=== PATIENT | female | born 1980 | race Caucasian/White ===

== ENCOUNTER 2018-04-30 12:54 | Inpatient (IN) | payer MEDICAID, SELFPAY ==
[2018-04-30 13:22] VITALS: BP 110/61; PULSE 75; RESP 16; TEMP 36.7; O2SAT 97; BMI 25.8; BMI 25.9
--- NOTE | 2018-04-30 14:19 | PCM.HP.STD ---
Problem List (1) Acute alcohol withdrawal Status: Acute (2) Acute opioid withdrawal Status: Acute (3) Benzodiazepine abuse Status: Chronic (4) Heroin abuse Status: Chronic (5) Alcohol abuse Status: Chronic History of Present Illness Date of Admission: 04/30/18 Chief Complaint: Acute opioid withdrawal, acute alcohol withdrawal. The patient is a 37 year old F with past medical history as mentioned above presented to the [facility] office requesting admission for acute opioid withdrawal and acute alcohol withdrawal. Patient has been using IV heroin continuously over the last 8 months, remained without use for several months before that and she has been using IV heroin for total of 12 years. She has been smoking cocaine as well. Also, she has been drinking alcohol daily, she drinks about 6 packs daily and last drink was 2 days ago. She mentioned that she also uses Xanax 5-10 mg a day for 3-5 days a week and his last use was 3 days ago. Her presenting symptoms are body shakes and tremors, associated with restlessness, started since yesterday morning, has been getting worse with time, associated with cold sweats and muscle aches and without aggravating or relieving factors. Also, she reported abdominal pain, described as abdominal cramps, mild, associated with nausea without vomiting and also associated with diarrhea. Since yesterday, she had about 4-5 times of loose stool without blood. She denies fever chills. At this time, her vital signs are stable. She was a direct admit and there is no blood work done at this time. 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 Paternal History Items: No pertinent history Review of Systems Constitutional: Reports: Anorexia, Malaise, Weakness. Denies: Chills, Fever Eyes: Denies: Blurred vision, Double vision, Drainage, Redness HEENT: Reports: Sore Throat, - - Runny nose.. Denies: Difficulty Hearing, Ear Pain, Eye Pain, Nasal bleeding, Nasal Congestion Cardiovascular: Denies: Chest Pain, Chest Pressure, Chest Tightness, Edema, Heaviness, Palpitations, Syncope Respiratory: Denies: Cough, Pleuritic Pain, Shortness of Breath, Sputum production, Wheezing Gastrointestinal: Reports: Abdominal Pain, Diarrhea, Nausea. Denies: Constipation, Hematochezia, Vomiting Genitourinary: Denies: Dysuria, Frequency, Hematuria Musculoskeletal: Reports: Muscle pain. Denies: Arm Pain, Back Pain, Foot Pain Skin: Denies: Dryness, Rash Neurological: Denies: Balance problems, Double vision, Change in Speech, Slurred speech, Confusion, Headaches, Incoordination, Numbness Psychiatric: Denies: Anxiety, Depression Endocrine: Denies: Change in Body Habitus, Polydipsia VTE Information - Inpt Only VTE Present on Admission: No VTE Mechan Device Prophylaxis: None VTE Pharm Prophylaxis ordered?: No Patient Problems: Active and Suspected Problems Acute alcohol withdrawal (Acute) Acute opioid withdrawal (Acute) - Physical Exam General: Alert, Oriented x3, Cooperative, No apparent distress HEENT: Atraumatic, PERRLA, EOMI, Normocephalic Oral: Moist Mucosa, No Gingival or Mucosal Lesions/ Ulcerations Neck: Supple, No JVD, Negative Carotid Bruits, Trachea Midline, Thyroid Normal Size and Texture Lungs: Clear to auscultation, Normal air movement, No rhonchi, No wheeze, No rales Cardiovascular: Regular rate, Regular Rhythm, Normal S1, Normal S2, PMI Normal Abdomen: Bowel Sounds Present, Soft, Non Tender, Non-Distended, No Hepato-splenomegaly Extremities: No clubbing, No cyanosis, No edema Skin: No rashes, No breakdown Lymphatic: No Cervical, Supraclavicular, or Inguinal Adenopathy Neurological: Cranial nerves II-XII grossly intact, Motor Exam 5/5 strength throughout Psych/Mental Status: Normal Affect, Anxious, Alert and oriented to time, place, person, mood and affect Vital Signs Temp Pulse Resp BP Pulse Ox 98.1 F 75 16 110/61 97 04/30/18 13:22 04/30/18 13:22 04/30/18 13:22 04/30/18 13:22 04/30/18 13:22 Oxygen Delivery Method Room Air Weight: 150 lb 11.2 oz Body Mass Index (BMI) 25.8 Assessment/Plan All Active Problems Acute alcohol withdrawal (Acute) Acute opioid withdrawal (Acute) This is a 37 years old female patient presented to the [facility] office requesting admission for medical stabilization secondary to acute opioid withdrawal and acute alcohol withdrawal. #1 acute opioid withdrawal: Patient has been using IV heroin, smokes crack cocaine, last use was yesterday. She has been using drugs for almost 12 years, was clean for 8 months but she started using IV heroin again for the last 8 months continuously. Plan: Admit to [facility] floor, regular diet, CBC, CMP, urine drug screen, blood alcohol level, serum test, lipase, initiate [facility] protocol with tapering course of Subutex, as needed Bentyl, Catapres, Vistaril, methocarbamol, Imodium, Zofran and Mirapex. #2 acute alcohol withdrawal: Patient has been drinking alcohol daily, 6 packs daily, last drink was 2 days ago. She has been drinking since age of 18. Plan: CIWA, tapering course of Librium, folic acid and thiamine supplement, multivitamins. #3 benzodiazepine abuse: Patient admitted using Xanax, between 5-10 mg a day for 3-5 days a week. Plan for close monitoring, will use tapering course of Librium as above. #3 alcohol abuse: Patient has been drinking since age of 18, daily drinker, drinks about 6 packs daily. Plan as above. #4 tobacco abuse: Offered nicotine patch. #5 DVT prophylaxis: Low-risk patient, no prophylaxis indicated. This note was generated with [employer] dictation software. It may contain incorrect words, spelling, and punctuation that were not noted in checking the note before signing. Code Visit Inpatient E&M: 96968 Init Hosp L3
--- NOTE | 2018-04-30 14:24 | HP.PCM_ITS ---
Problem List (1) Acute alcohol withdrawal Status: Acute (2) Acute opioid withdrawal Status: Acute (3) Benzodiazepine abuse Status: Chronic (4) Heroin abuse Status: Chronic (5) Alcohol abuse Status: Chronic History of Present Illness Date of Admission: 04/30/18 Chief Complaint: Acute opioid withdrawal, acute alcohol withdrawal. The patient is a 37 year old F with past medical history as mentioned above presented to the [facility] office requesting admission for acute opioid withdrawal and acute alcohol withdrawal. Patient has been using IV heroin continuously over the last 8 months, remained without use for several months before that and she has been using IV heroin for total of 12 years. She has been smoking cocaine as well. Also, she has been drinking alcohol daily, she drinks about 6 packs daily and last drink was 2 days ago. She mentioned that she also uses Xanax 5-10 mg a day for 3-5 days a week and his last use was 3 days ago. Her presenting symptoms are body shakes and tremors, associated with restlessness, started since yesterday morning, has been getting worse with time, associated with cold sweats and muscle aches and without aggravating or relieving factors. Also, she reported abdominal pain, described as abdominal cramps, mild, associated with nausea without vomiting and also associated with diarrhea. Since yesterday, she had about 4-5 times of loose stool without blood. She denies fever chills. At this time, her vital signs are stable. She was a direct admit and there is no blood work done at this time. 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 Paternal History Items: No pertinent history Review of Systems Constitutional: Reports: Anorexia, Malaise, Weakness. Denies: Chills, Fever Eyes: Denies: Blurred vision, Double vision, Drainage, Redness HEENT: Reports: Sore Throat, - - Runny nose.. Denies: Difficulty Hearing, Ear Pain, Eye Pain, Nasal bleeding, Nasal Congestion Cardiovascular: Denies: Chest Pain, Chest Pressure, Chest Tightness, Edema, Heaviness, Palpitations, Syncope Respiratory: Denies: Cough, Pleuritic Pain, Shortness of Breath, Sputum production, Wheezing Gastrointestinal: Reports: Abdominal Pain, Diarrhea, Nausea. Denies: Constipation, Hematochezia, Vomiting Genitourinary: Denies: Dysuria, Frequency, Hematuria Musculoskeletal: Reports: Muscle pain. Denies: Arm Pain, Back Pain, Foot Pain Skin: Denies: Dryness, Rash Neurological: Denies: Balance problems, Double vision, Change in Speech, Slurred speech, Confusion, Headaches, Incoordination, Numbness Psychiatric: Denies: Anxiety, Depression Endocrine: Denies: Change in Body Habitus, Polydipsia VTE Information - Inpt Only VTE Present on Admission: No VTE Mechan Device Prophylaxis: None VTE Pharm Prophylaxis ordered?: No Patient Problems: Active and Suspected Problems Acute alcohol withdrawal (Acute) Acute opioid withdrawal (Acute) - Physical Exam General: Alert, Oriented x3, Cooperative, No apparent distress HEENT: Atraumatic, PERRLA, EOMI, Normocephalic Oral: Moist Mucosa, No Gingival or Mucosal Lesions/ Ulcerations Neck: Supple, No JVD, Negative Carotid Bruits, Trachea Midline, Thyroid Normal Size and Texture Lungs: Clear to auscultation, Normal air movement, No rhonchi, No wheeze, No rales Cardiovascular: Regular rate, Regular Rhythm, Normal S1, Normal S2, PMI Normal Abdomen: Bowel Sounds Present, Soft, Non Tender, Non-Distended, No Hepato- splenomegaly Extremities: No clubbing, No cyanosis, No edema Skin: No rashes, No breakdown Lymphatic: No Cervical, Supraclavicular, or Inguinal Adenopathy Neurological: Cranial nerves II-XII grossly intact, Motor Exam 5/5 strength throughout Psych/Mental Status: Normal Affect, Anxious, Alert and oriented to time, place, person, mood and affect Vital Signs Temp Pulse Resp BP Pulse Ox 98.1 F 75 16 110/61 97 04/30/18 13:22 04/30/18 13:22 04/30/18 13:22 04/30/18 13:22 04/30/18 13:22 Oxygen Delivery Method Room Air Weight: 150 lb 11.2 oz Body Mass Index (BMI) 25.8 Assessment/Plan All Active Problems Acute alcohol withdrawal (Acute) Acute opioid withdrawal (Acute) This is a 37 years old female patient presented to the [facility] office requesting admission for medical stabilization secondary to acute opioid withdrawal and acute alcohol withdrawal. #1 acute opioid withdrawal: Patient has been using IV heroin, smokes crack cocaine, last use was yesterday. She has been using drugs for almost 12 years, was clean for 8 months but she started using IV heroin again for the last 8 months continuously. Plan: Admit to [facility] floor, regular diet, CBC, CMP, urine drug screen, blood alcohol level, serum test, lipase, initiate [facility] protocol with tapering course of Subutex, as needed Bentyl, Catapres, Vistaril, methocarbamol, Imodium, Zofran and Mirapex. #2 acute alcohol withdrawal: Patient has been drinking alcohol daily, 6 packs daily, last drink was 2 days ago. She has been drinking since age of 18. Plan: CIWA, tapering course of Librium, folic acid and thiamine supplement, multivitamins. #3 benzodiazepine abuse: Patient admitted using Xanax, between 5-10 mg a day for 3-5 days a week. Plan for close monitoring, will use tapering course of Librium as above. #3 alcohol abuse: Patient has been drinking since age of 18, daily drinker, drinks about 6 packs daily. Plan as above. #4 tobacco abuse: Offered nicotine patch. #5 DVT prophylaxis: Low-risk patient, no prophylaxis indicated. This note was generated with [employer] dictation software. It may contain incorrect words, spelling, and punctuation that were not noted in checking the note before signing. Code Visit Inpatient E&M: 52425 Init Hosp L3
[2018-04-30] MEDS: chlordiazePOXIDE 25 MG Capsule PO ×2 (15:46→21:36)
[2018-04-30] MEDS: Pramipexole Di-HCl 0.25 MG Tablet PO (15:47)
[2018-04-30] MEDS: Methocarbamol 750 MG Tablet PO ×2 (15:47→21:47)
[2018-04-30] MEDS: Ondansetron ODT 4 MG Tablet PO ×2 (15:47→21:47)
[2018-04-30] MEDS: cloNIDine HCl 0.1 MG Tablet PO (15:47)
[2018-04-30 15:51] LABS: Absolute Neutrophil Count 1.9 X10^3/uL (2.0-7.7); Basophil# 0.04 X10^3/uL; Basophil% 0.8 % (0-1); Eosinophil# 0.14 X10^3/uL; Eosinophils% 2.9 % (0-5); Hematocrit 43.1 % (37-47); Lymphocyte % 47.8 % (19-41); Mean Corp Hgb Conc 32.5 g/gl (32-36); Mean Corpuscular Hgb 28.3 pg (27.0-32.0); Mean Corpuscular Volume 87.1 fL (81-99); Mean Platelet Vol. 10.8 fl (6.2-12.0); Monocyte# 0.41 X10^3/uL; Monocyte% 8.5 % (0-10); Neutrophil # 1.91 X10^3/uL (2.7-7.7); Neutrophil % 39.8 % (47-70); Platelet Count 291 K/mm3 (150-450); RBC Distribution Width SD 44.1 fl (35.1-43.9); Red Blood Count 4.95 M/mm3 (4.2-5.4); White Blood Count 4.8 K/mm3 (4.4-11.0)
[2018-04-30 15:52] LABS: POSITIVE COUNT NO; POSITIVE DIFFERENTIAL NO; POSITIVE MORPHOLOGY NO
[2018-04-30 16:10] LABS: ALB/GLOB Ratio 0.8 RATIO (0.9-2.4); AST(SGOT) 37 U/L (15-37); Alanine Aminotransfer ALT/SGPT 62 U/L (13-56); Albumin, Serum 3.4 g/dL (3.2-5.0); Alkaline Phosphatase 138 U/L (45-117); Anion Gap 7 (5-15); BUN 6 mg/dL (7-18); Calcium,Total 8.8 mg/dL (8.5-10.1); Chloride 106 mmol/L (98-107); Creatinine, Serum 0.75 mg/dL (0.55-1.02); EST Glomerular Filtration Rate 93 mL/min (>60); Est Glom Filt Rate - Afr Amer 112 mL/min (>60); Estimated Creatinine Clearance 88.68 ml/min; Globulin 4.4 g/dL (2.2-4.2); Glucose 80 mg/dL (74-106); International Normalized Ratio 0.9; Lipase 70 U/L (73-393); Potassium 4.1 mmol/L (3.5-5.1); Protein, Total 7.8 g/dL (6.4-8.2); Prothrombin Time (Protime)PT. 12.6 SECONDS (11.7-14.9); Sodium Level 138 mmol/L (136-145)
[2018-04-30 16:28] LABS: Pregnancy, Serum, hCG Quali. NEGATIVE Negative (0-9 Nonpreg)
[2018-04-30 16:29] LABS: Amphetamine Urine VISTA NEGATIVE (<1000 ng/mL); Barbiturate Urine VISTA NEGATIVE (< 200 ng/mL); Benzodiazepine Urine VISTA NEGATIVE (< 200 ng/mL); Cocaine Urine VISTA POSITIVE (< 300 ng/mL); Ecstacy Urine VISTA NEGATIVE (< 500 ng/mL); Methadone Urine VISTA NEGATIVE (< 300 ng/mL); PCP Urine VISTA NEGATIVE (< 25 ng/mL); THC Urine VISTA POSITIVE (< 50 ng/mL); Vista UDS pH Range 6
[2018-04-30 18:00] VITALS: BP 91/56; PULSE 75; RESP 16; TEMP 36.8; O2SAT 98
[2018-04-30] MEDS: hydrOXYzine PAM 25 MG Capsule 50 MG PO (19:46)
[2018-04-30] MEDS: Buprenorphine HCl 2 MG TAB.SUBL SL (21:36)
[2018-04-30] MEDS: traZODone 50 MG Tablet PO (21:36)
[2018-04-30 21:38] VITALS: BP 97/53; PULSE 65; RESP 16; TEMP 36.9; O2SAT 99
[2018-04-30 21:40] VITALS: RESP 18; O2SAT 99
[2018-04-30] MEDS: Acetaminophen 500 MG Tablet PO (21:46)
[2018-04-30] MEDS: Dicyclomine 10 MG Capsule 20 MG PO (21:47)
[2018-05-01 02:49] VITALS: BP 95/57; PULSE 58; RESP 16; TEMP 36.6; O2SAT 97
[2018-05-01] MEDS: hydrOXYzine PAM 25 MG Capsule 50 MG PO ×3 (02:55→20:00)
[2018-05-01] MEDS: chlordiazePOXIDE 25 MG Capsule PO ×3 (02:55→17:56)
[2018-05-01] MEDS: Buprenorphine HCl 2 MG TAB.SUBL SL ×3 (05:31→21:23)
[2018-05-01 05:32] VITALS: BP 91/50; PULSE 60; RESP 16; TEMP 36.6; O2SAT 97
[2018-05-01] MEDS: Ondansetron ODT 4 MG Tablet PO ×3 (05:34→21:29)
[2018-05-01] MEDS: Acetaminophen 500 MG Tablet PO ×2 (05:34→21:28)
[2018-05-01] MEDS: Methocarbamol 750 MG Tablet PO ×3 (05:34→20:00)
[2018-05-01] MEDS: Pramipexole Di-HCl 0.25 MG Tablet PO ×2 (05:34→17:57)
[2018-05-01] MEDS: Dicyclomine 10 MG Capsule 20 MG PO ×3 (05:35→20:00)
--- NOTE | 2018-05-01 08:57 | PCM.PROGNOTE ---
Patient Problems: Active and Suspected Problems Acute alcohol withdrawal (Acute) Acute opioid withdrawal (Acute) Subjective: Chief complaint: Follow-up after admission for acute opioid and alcohol withdrawal. Patient seen and examined. No acute events overnight. Today, she denied any significant improvement, still having same symptoms of restlessness, anxiety, tremors and abdominal cramps. Her vital signs are stable. - Physical Exam General: Alert, Oriented x3, Cooperative, No apparent distress HEENT: PERRLA, EOMI, Normocephalic Oral: Moist Mucosa, No Gingival or Mucosal Lesions/ Ulcerations Neck: Supple, No JVD, Negative Carotid Bruits, Trachea Midline, Thyroid Normal Size and Texture Lungs: Clear to auscultation, Normal air movement, No rhonchi, No wheeze, No rales Cardiovascular: Regular rate, Regular Rhythm, Normal S1, Normal S2, PMI Normal Abdomen: Bowel Sounds Present, Soft, Non Tender, Non-Distended, No Hepato-splenomegaly Extremities: No clubbing, No cyanosis, No edema Skin: No rashes, No breakdown Lymphatic: No Cervical, Supraclavicular, or Inguinal Adenopathy Neurological: Cranial nerves II-XII grossly intact, Neuro grossly intact Psych/Mental Status: Flat Affect, Alert and oriented to time, place, person, mood and affect Vital Signs Temp Pulse Resp BP Pulse Ox 97.8 F 60 16 91/50 L 97 05/01/18 05:32 05/01/18 05:32 05/01/18 05:32 05/01/18 05:32 05/01/18 05:32 Oxygen Delivery Method Room Air Weight: 150 lb 11.187 oz Body Mass Index (BMI) 25.8 Intake and Output for Last 24 Hours 04/29/18 04/30/18 05/01/18 23:59 23:59 23:59 Intake Total 640 / 640 Balance 640 / 640 Laboratory Tests Past 24 Hrs 04/30/18 04/30/18 04/30/18 13:15 15:29 15:30 WBC 4.8 RBC 4.95 Hgb 14.0 Hct 43.1 MCV 87.1 MCH 28.3 MCHC 32.5 RDW 14.0 RDW Differential 44.1 H Plt Count 291 MPV 10.8 Immature Gran % (Auto) 0.200 Neut % (Auto) 39.8 L Lymph % (Auto) 47.8 H [place] % (Auto) 8.5 Eos % (Auto) 2.9 Baso % (Auto) 0.8 Absolute Neuts (auto) 1.9 L Absolute Lymphs (auto) 2.30 Total Counted Not Reportable PT INR Sodium Potassium Chloride Carbon Dioxide Anion Gap BUN Creatinine Estim Creat Clear Calc Est GFR (MDRD) Af Amer Est GFR (MDRD) Non-Af BUN/Creatinine Ratio Glucose Calcium Total Bilirubin AST ALT Alkaline Phosphatase Total Protein Albumin Globulin Albumin/Globulin Ratio Lipase Serum , Qual NEGATIVE Urine Opiates Screen POSITIVE H Urine Methadone Screen NEGATIVE Ur Barbiturates Screen NEGATIVE Ur Phencyclidine Scrn NEGATIVE Ur Amphetamines Screen NEGATIVE U Methamphetamin-MDMA NEGATIVE U Benzodiazepines Scrn NEGATIVE Urine Cocaine Screen POSITIVE H U Cannabinoids Screen POSITIVE H Ur Drug Screen Comment Ethyl Alcohol 04/30/18 04/30/18 04/30/18 15:30 15:30 15:30 WBC RBC Hgb Hct MCV MCH MCHC RDW RDW Differential Plt Count MPV Immature Gran % (Auto) Neut % (Auto) Lymph % (Auto) [place] % (Auto) Eos % (Auto) Baso % (Auto) Absolute Neuts (auto) Absolute Lymphs (auto) Total Counted PT 12.6 INR 0.9 Sodium 138 Potassium 4.1 Chloride 106 Carbon Dioxide 25.0 Anion Gap 7 BUN 6 L Creatinine 0.75 Estim Creat Clear Calc 88.68 Est GFR (MDRD) Af Amer 112 Est GFR (MDRD) Non-Af 93 BUN/Creatinine Ratio 8.0 L Glucose 80 Calcium 8.8 Total Bilirubin 0.20 AST 37 ALT 62 H Alkaline Phosphatase 138 H Total Protein 7.8 Albumin 3.4 Globulin 4.4 H Albumin/Globulin Ratio 0.8 L Lipase 70 L Serum , Qual Urine Opiates Screen Urine Methadone Screen Ur Barbiturates Screen Ur Phencyclidine Scrn Ur Amphetamines Screen U Methamphetamin-MDMA U Benzodiazepines Scrn Urine Cocaine Screen U Cannabinoids Screen Ur Drug Screen Comment Ethyl Alcohol 5.0 Medical Necessity - Tobacco Use Smoking Status: Current every day smoker Tobacco Use: Cigarettes Assessment/Plan All Active Problems Acute alcohol withdrawal (Acute) Acute opioid withdrawal (Acute) This is a 37 years old female patient presented to the [facility] office requesting admission for medical stabilization secondary to acute opioid withdrawal and acute alcohol withdrawal. #1 acute opioid withdrawal: She is on tapering course of Subutex as well as as needed Bentyl, Catapres, Vistaril, methocarbamol and Zofran as well as Mirapex. Her routine blood work was unremarkable. LFT revealed minimally elevated ALT and alkaline phosphatase which is likely due to chronic alcoholism. Lipase was normal. Serum test was negative. Urine drug screen was positive for opioids, cocaine and cannabinoids. Blood alcohol was 5. Plan to continue same treatment. #2 acute alcohol withdrawal: She is on Librium taper, folic acid, thiamine and multivitamins. She reported no significant improvement, plan as above. #3 benzodiazepine abuse: Patient admitted using Xanax, between 5-10 mg a day for 3-5 days a week. Continue monitoring, will use tapering course of Librium as above. #3 alcohol abuse: Patient has been drinking since age of 18, daily drinker, drinks about 6 packs daily. Plan as above. #4 tobacco abuse: She is on nicotine patch. #5 DVT prophylaxis: Low-risk patient, no prophylaxis indicated. This note was generated with [employer] dictation software. It may contain incorrect words, spelling, and punctuation that were not noted in checking the note before signing. Code Visit Inpatient E&M: 27513 Subs Hosp L2
--- NOTE | 2018-05-01 09:16 | [facility] ---
patient is scheduled to attend [facility] for an assessment on Friday05/06/18 at 9:30 am. Agency will contact patient if they are able to get her in on Friday.
[2018-05-01] MEDS: Folic Acid 1 MG Tablet PO (09:29)
[2018-05-01] MEDS: Multivitamins,Therapeutic Tablet 1 TABLET PO (09:29)
[2018-05-01] MEDS: Thiamine Hydrochloride 100 MG Tablet PO (09:29)
[2018-05-01 10:00] VITALS: BP 93/56; PULSE 54; RESP 16; TEMP 36.6; O2SAT 98
[2018-05-01 16:00] VITALS: BP 90/51; PULSE 69; RESP 16; TEMP 36.6; O2SAT 97
[2018-05-01 19:55] VITALS: BP 99/55; PULSE 59; RESP 18; TEMP 36.4; O2SAT 99
[2018-05-01] MEDS: traZODone 50 MG Tablet PO (21:23)
[2018-05-02] VITALS (8 sets, daily range): BP systolic 91–104; BP diastolic 52–62; PULSE 67–87; RESP 16–18; TEMP 36.4–37.2; O2SAT 96–99
[2018-05-02] MEDS: chlordiazePOXIDE 25 MG Capsule PO ×3 (02:27→17:22)
[2018-05-02] MEDS: Methocarbamol 750 MG Tablet PO ×3 (02:34→17:22)
[2018-05-02] MEDS: hydrOXYzine PAM 25 MG Capsule 50 MG PO ×3 (02:34→21:13)
[2018-05-02] MEDS: Dicyclomine 10 MG Capsule 20 MG PO ×3 (02:34→17:22)
[2018-05-02] MEDS: Buprenorphine HCl 2 MG TAB.SUBL SL ×2 (04:26→17:22)
[2018-05-02] MEDS: Ondansetron ODT 4 MG Tablet PO ×2 (04:29→12:28)
--- NOTE | 2018-05-02 08:21 | PCM.PROGNOTE ---
Patient Problems: Active and Suspected Problems Acute alcohol withdrawal (Acute) Acute opioid withdrawal (Acute) Subjective: Chief complaint: Follow-up after admission for acute opioid and alcohol withdrawal. Patient seen and examined. No acute events overnight. Patient was not interested in talking about her symptoms but she mentioned that she is getting better. She stated that she slept okay last night but has been having frequent wake ups. Her vital signs are stable. - Physical Exam General: Alert, Oriented x3, No apparent distress HEENT: Atraumatic, PERRLA, EOMI, Normocephalic Oral: Moist Mucosa, No Gingival or Mucosal Lesions/ Ulcerations Neck: Supple, No JVD, Negative Carotid Bruits, Trachea Midline, Thyroid Normal Size and Texture Lungs: Clear to auscultation, Normal air movement, No rhonchi, No wheeze, No rales Cardiovascular: Regular rate, Regular Rhythm, Normal S1, Normal S2, No murmurs Abdomen: Bowel Sounds Present, Soft, Non Tender, Non-Distended, No Hepato-splenomegaly Extremities: No clubbing, No cyanosis, No edema Skin: No rashes, No breakdown Lymphatic: No Cervical, Supraclavicular, or Inguinal Adenopathy Neurological: Cranial nerves II-XII grossly intact, Neuro grossly intact Psych/Mental Status: Flat Affect, Alert and oriented to time, place, person, mood and affect Vital Signs Temp Pulse Resp BP Pulse Ox 97.6 F L 73 16 104/54 L 98 05/02/18 02:28 05/02/18 02:28 05/02/18 02:28 05/02/18 02:28 05/02/18 02:28 Oxygen Delivery Method Room Air Weight: 150 lb 11.187 oz Body Mass Index (BMI) 25.8 Intake and Output for Last 24 Hours 04/30/18 05/01/18 05/02/18 23:59 23:59 23:59 Intake Total 640 / 640 Balance 640 / 640 Medical Necessity - Tobacco Use Smoking Status: Current every day smoker Tobacco Use: Cigarettes Assessment/Plan All Active Problems Acute alcohol withdrawal (Acute) Acute opioid withdrawal (Acute) This is a 37 years old female patient presented to the [facility] office requesting admission for medical stabilization secondary to acute opioid withdrawal and acute alcohol withdrawal. #1 acute opioid withdrawal: She is on tapering course of Subutex as well as as needed Bentyl, Catapres, Vistaril, methocarbamol and Zofran as well as Mirapex. Her routine blood work was unremarkable. She started to notice some improvement of her symptoms, having less anxiety and resistance. Urine drug screen was positive for opioids, cocaine and cannabinoids. Blood alcohol was 5. Plan to continue same treatment. #2 acute alcohol withdrawal: She is on Librium taper, folic acid, thiamine and multivitamins. Plan as above. #3 benzodiazepine abuse: Patient admitted using Xanax, between 5-10 mg a day for 3-5 days a week. Continue monitoring, will use tapering course of Librium as above. #3 alcohol abuse: Patient has been drinking since age of 18, daily drinker, drinks about 6 packs daily. Plan as above. #4 tobacco abuse: She is on nicotine patch. #5 DVT prophylaxis: Low-risk patient, no prophylaxis indicated. This note was generated with [employer] dictation software. It may contain incorrect words, spelling, and punctuation that were not noted in checking the note before signing. Code Visit Inpatient E&M: 17823 Subs Hosp L2
[2018-05-02] MEDS: Multivitamins,Therapeutic Tablet 1 TABLET PO (08:48)
[2018-05-02] MEDS: Folic Acid 1 MG Tablet PO (08:48)
[2018-05-02] MEDS: Thiamine Hydrochloride 100 MG Tablet PO (08:48)
[2018-05-02] MEDS: Pramipexole Di-HCl 0.25 MG Tablet PO (12:28)
[2018-05-02] MEDS: cloNIDine HCl 0.1 MG Tablet PO ×2 (12:28→21:23)
[2018-05-02] MEDS: Acetaminophen 500 MG Tablet PO ×2 (12:28→21:23)
[2018-05-02] MEDS: traZODone 50 MG Tablet PO (21:13)
[2018-05-03] MEDS: Dicyclomine 10 MG Capsule 20 MG PO ×2 (00:26→08:30)
[2018-05-03] MEDS: Methocarbamol 750 MG Tablet PO ×2 (00:26→08:30)
[2018-05-03] MEDS: Pramipexole Di-HCl 0.25 MG Tablet PO (00:26)
[2018-05-03] MEDS: Buprenorphine HCl 2 MG TAB.SUBL SL (05:00)
[2018-05-03] MEDS: Acetaminophen 500 MG Tablet PO (05:00)
[2018-05-03] MEDS: chlordiazePOXIDE 25 MG Capsule PO (05:00)
[2018-05-03 05:05] VITALS: BP 91/52; PULSE 54; RESP 16; TEMP 36.6
[2018-05-03 08:23] VITALS: BP 92/60; PULSE 59; RESP 18; TEMP 36.7; O2SAT 99
[2018-05-03] MEDS: Thiamine Hydrochloride 100 MG Tablet PO (08:25)
[2018-05-03] MEDS: Folic Acid 1 MG Tablet PO (08:25)
[2018-05-03] MEDS: Multivitamins,Therapeutic Tablet 1 TABLET PO (08:25)
[2018-05-03] MEDS: hydrOXYzine PAM 25 MG Capsule 50 MG PO (08:30)
[2018-05-03] MEDS: Ondansetron ODT 4 MG Tablet PO (08:30)
--- NOTE | 2018-05-03 08:54 | DCINST_ITS ---
- Discharge Diagnoses Current Active Problems: Current Active and Chronic Problems Acute alcohol withdrawal (Acute) Acute opioid withdrawal (Acute) Benzodiazepine abuse (Chronic) Heroin abuse (Chronic) Alcohol abuse (Chronic) You will use the following diet at home:: Regular Your food should be the consistency of: Regular Discharge Activity: Return to Normal Activity Weight Bearing Status: Full weight bearing Call your doctor if you observe: Fever of 101 or Higher, Shortness of breath, Dizziness, Fainting spells, Chest pain, Increased palpitations (irregular heartbeat), Uncontrolled pain Allergies/Adverse Reactions: Allergies No Known Allergies Allergy (Verified 04/30/18 13:25) Medications to take at Discharge Folic Acid 1 mg PO DAILYCM #30 tab 05/03/18 Thiamine Hydrochloride [Vitamin B1] 100 mg PO DAILYCM #30 tab 05/03/18 The following prescriptions were given: Folic Acid 1 mg PO DAILYCM #30 tab Thiamine Hydrochloride [Vitamin B1] 100 mg PO DAILYCM #30 tab Primary Care Physician: Care Physician,No Primary [Primary Care Provider] - Please follow up with your Primary Care Physician in: 2-4 weeks. Test Results: Test results from this visit will be discussed in further detail at your follow- up appointment, if applicable.
[2018-05-03 10:00] VITALS: BP 92/60; PULSE 59; RESP 18; TEMP 36.7; O2SAT 99
--- NOTE | 2018-05-03 11:40 | DS.PCM_ITS ---
Discharge Date and Diagnosis Date of Admission: 04/30/18 Date of Discharge: 05/03/18 - Primary Discharge Diagnosis Active and Suspected Problems Acute alcohol withdrawal (Acute) Acute opioid withdrawal (Acute) - Secondary Discharge Diagnosis Chronic Problems Benzodiazepine abuse (Chronic) Heroin abuse (Chronic) Alcohol abuse (Chronic) Hospital Course and Treatment Operations: None Procedures: None Summary of Care Provided: Patient seen and examined on the day of discharge and appeared to be stable to be discharged home. Symptoms of withdrawal continue to improve slowly. Her vital signs are stable. The patient is a 37 year old F presented to the [facility] office requesting admission for medical stabilization due to acute opioid withdrawal and acute alcohol withdrawal. Patient has been using IV heroin and also has been drinking alcohol heavily, she drinks about 6 packs daily. Her presenting symptoms were body aches, tremors, restless, and anxiety, abdominal cramps and nausea. Her routine blood work was unremarkable. LFT was minimally elevated and felt to be due to chronic alcohol drinking. Lipase was normal. Serum test was negative. Blood alcohol level was 5. Urine drug screen was positive for opioids, cocaine and cannabinoids. Patient was admitted to the floor, started on [facility] protocol with tapering course of Subutex and Librium as well as as needed Bentyl, Catapres, Vistaril, methocarbamol, Zofran and Mirapex. With treatment, her symptoms started to improve and she did improve very slowly. Her vital signs remained stable throughout admission. Patient discharged home in a stable medical condition, discharged on folic acid and thiamine supplement, plan to follow-up with [facility] as outpatient regarding the further plan, recommended follow-up with PCP in 2-4 weeks. - Physical Exam General: Alert, Oriented x3, Cooperative, No apparent distress HEENT: Atraumatic, PERRLA, EOMI, Normocephalic Oral: Moist Mucosa, No Gingival or Mucosal Lesions/ Ulcerations Neck: Supple, No JVD, Negative Carotid Bruits, Trachea Midline, Thyroid Normal Size and Texture Lungs: Clear to auscultation, Normal air movement, No rhonchi, No rales Cardiovascular: Regular rate, Regular Rhythm, Normal S1, Normal S2 Abdomen: Bowel Sounds Present, Soft, Non Tender, Non-Distended, No Hepato-splenomegaly Extremities: No clubbing, No cyanosis, No edema Skin: No rashes, No breakdown Lymphatic: No Cervical, Supraclavicular, or Inguinal Adenopathy Neurological: Cranial nerves II-XII grossly intact, Neuro grossly intact Psych/Mental Status: Normal Affect, Appropriate Vital Signs Temp Pulse Resp BP Pulse Ox 98.1 F 59 L 18 92/60 99 05/03/18 10:00 05/03/18 10:00 05/03/18 10:00 05/03/18 10:00 05/03/18 10:00 Oxygen Delivery Method Room Air Weight: 150 lb 11.187 oz Body Mass Index (BMI) 25.8 Intake and Output for Last 24 Hours 05/01/18 05/02/18 05/03/18 23:59 23:59 23:59 Intake Total 640 / 640 1500 / 1500 Balance 640 / 640 1500 / 1500 Discharge Activity: Return to Normal Activity Weight Bearing Status: Full weight bearing Call your doctor if you observe: Fever of 101 or Higher, Shortness of breath, Dizziness, Fainting spells, Chest pain, Increased palpitations (irregular heartbeat), Uncontrolled pain Home Medications: Medications to take at Discharge Folic Acid 1 mg PO DAILYCM #30 tab 05/03/18 Thiamine Hydrochloride [Vitamin B1] 100 mg PO DAILYCM #30 tab 05/03/18 Following Prescrptions Were Given to Patient: Folic Acid 1 mg PO DAILYCM #30 tab Thiamine Hydrochloride [Vitamin B1] 100 mg PO DAILYCM #30 tab Primary Care Physician: Care Physician,No Primary [Primary Care Provider] - Please follow up with your Primary Care Physician in: 2-4 weeks. Disposition: Home Minutes spent on discharge:: 25 Patient Condition:: Stable Medical Necessity - Tobacco Use Smoking Status: Current every day smoker Tobacco Use: Cigarettes Meaningful Use Info Meaningful Use Diagnoses (Choose all that apply): None applicable Code Visit Inpatient E&M: 18587 Disch Hosp
== END 2018-05-03 10:00 | disposition home or self-care (01) | DRG 773 ==
PROVIDERS: Admitting Provider Hospitalist; Referring Provider Hospitalist; Visit Provider Hospitalist
DX: F10.239 Alcohol dependence with withdrawal, unspecified (principal); Y90.0 Blood alcohol level of less than 20 mg/100 ml; F11.23 Opioid dependence with withdrawal; F13.10 Sedative, hypnotic or anxiolytic abuse, uncomplicated; F17.210 Nicotine dependence, cigarettes, uncomplicated
CPT/HCPCS: 36415; 80053; 80307; 80320; 83690; 84703; 85025; 85610; 97802; 99406; G0480

== ENCOUNTER 2018-08-31 15:50 | Observation (INO) | payer MEDICAID, SELFPAY ==
[2018-04-30 13:22] VITALS: BMI 25.8
[2018-08-31 15:52] VITALS: BP 115/79; PULSE 89; RESP 18; TEMP 36.6; O2SAT 98; BMI 22.6
--- NOTE | 2018-08-31 17:12 | ED.DCSUM_ITS ---
- ER Visit Summary Date of Service: 08/31/18 Chief Complaint: [Need for detox from heroin] History of Present Illness: The patient is a 37 F [resents to the emergency department after being evaluated by [facility] and accepted for rehab from heroin. There was some concern about a rash the patient is had for several months to her skin. Patient states that she was seen at another emergency department a month ago and started on Keflex and Bactrim and really had no resolution of her symptoms although she thinks that they were more red and cellulitic at that time and that part is improved. Patient is not sure if she scratches in the middle the night. Patient does use crack cocaine and heroin and last used heroin around 6 PM yesterday. Patient denies any fevers or recent illness otherwise.] Physical Examination: [HEENT-PERRLA, EOMI. Cranial nerves II through XII grossly intact. TMs clear. Mucous membranes moist. No adenopathy. Cardiovascular-regular rate and rhythm without murmur or ectopy Lungs-clear to auscultation, chest wall stable without crepitus or subcu em physema Abdomen-normoactive bowel sounds, soft, nontender, no rebound or rigidity, no peritoneal signs. Skin exam-patient has an excoriated dermatitis that is diffuse about the head, trunk, and extremities. There are multiple lesions in different stages of healing some of which are completely healed. None of them appear to be cellulitic. Extremities-intact ?4, normal range of motion, normal pulses, atraumatic] Test Results: [None indicated] Emergency Department Course and Treatment: [I do not feel there is any emergent need for treatment of these lesions I suspect these may be more from patient chronically picking and scratching.] Treatment Plan: [Admit to the [facility] for heroin detox.] Disposition: [Admit] Impression: [Heroin withdrawal Chronic dermatitis] This note was generated with [employer] dictation software. It may contain incorrect words, spelling, and punctuation that were not noted in review of the chart prior to signing ED Disposition - Plan for ED Patient: Referrals: Care Physician,No Primary [Primary Care Provider] -
--- NOTE | 2018-08-31 17:37 | NURSING ---
301 ACUTE OPIOID WITHDRAWAL PAINTSIL
[2018-08-31 18:00] VITALS: BMI 22.9
[2018-08-31 18:46] VITALS: BP 119/37; PULSE 78; RESP 18; TEMP 37.2
[2018-08-31] MEDS: Buprenorphine HCl 2 MG TAB.SUBL SL (18:48)
[2018-08-31] MEDS: hydrOXYzine PAM 25 MG Capsule 50 MG PO (18:57)
[2018-08-31] MEDS: Pramipexole Di-HCl 0.25 MG Tablet PO (18:57)
[2018-08-31] MEDS: Ondansetron ODT 4 MG Tablet PO (18:58)
--- NOTE | 2018-08-31 19:27 | PCM.HP.STD ---
Problem List (1) Acute opioid withdrawal Status: Acute (2) Heroin abuse Status: Chronic History of Present Illness Date of Admission: 08/31/18 Chief Complaint: Acute opioid withdrawal - 1 day The patient is a 37 year old F with PMHx of polysubstance use disorder, nicotine dependence, who was recently discharged on 05/03/18 after medical stabilization for acute opioid and alcohol withdrawal. Patient admits to using about 1 g to 1-1/2 g of IV heroin every day. Last used IV heroin 08/30/18 about half a gram. Comes in with complaints of nausea vomiting muscle cramps, hot and cold flashes, muscle aches. Denies use of alcohol.. She also complains of generalized ulcers all over her body. She admits that she used to pick her skin train herself to stop. She is not sure if she is picking her skin in the sleep. She plans on following up with an inpatient treatment facility on discharge. Also on admission show temperature of 90 8F, heart rate 89, blood pressure 115/79, respiratory rate was 18, SPO2 is 98% on room air. Admitting CBC D, INR, CMP was unremarkable Except for elevated ALT and ALP. Admitting alcohol level was 5.0. 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 Paternal History Items: No pertinent history Review of Systems Constitutional: Reports: Night Sweats, Malaise, Fatigue. Denies: Anorexia, Chills, Fever, Weakness, Weight Change Eyes: Denies: Blurred vision, Cataracts, Conjunctivae Inflammation, Pain, Redness, Vision Change HEENT: Denies: Difficulty Hearing, Difficulty Swallowing, Head Aches, Hearing Changes, Sinus Congestion, Sinus Drainage Cardiovascular: Denies: Chest Pain, Claudication, Chest Pressure, Chest Tightness, Orthopnea, Palpitations, Paroxysmal Noc. Dyspnea Respiratory: Denies: Cough, Hemoptysis, Shortness of breath at rest, Shortness of breath upon exertion, Sputum production Gastrointestinal: Reports: Nausea, Vomiting. Denies: Abdominal Pain, Constipation, Hematemesis, Hematochezia Genitourinary: Denies: Dysuria, Frequency, Incontinence Gynecological: Denies: Breast symptoms Musculoskeletal: Reports: Muscle pain. Denies: Joint Pain, Joint stiffness, Joint swelling, Joint Tenderness Skin: Denies: Rash, Wounds Neurological: Denies: Numbness, Tingling, Focal weakness Psychiatric: Denies: Anxiety, Depression, Homicidal Ideations, Suicidal Ideations Hematologic/ Lymphatic: Denies: Easy Bruising, Easy Bleeding VTE Information - Inpt Only VTE Present on Admission: No VTE Pharm Prophylaxis ordered?: Yes - Physical Exam General: Alert, Oriented x3, Cooperative, No apparent distress HEENT: Atraumatic, PERRLA, EOMI, Normocephalic Oral: Moist Mucosa Neck: Supple Lungs: Clear to auscultation, Normal air movement Cardiovascular: Regular rate, Regular Rhythm, Normal S1, Normal S2, No murmurs Abdomen: Bowel Sounds Present, Soft, Non Tender, Non-Distended, No Hepato-splenomegaly Extremities: No edema Skin: - - Multiple areas of skin breakdown in multiple stages of healing. No cellulitis seen. Musculoskeletal: No Tenderness to Palpation of Joints or Extremities Lymphatic: No Cervical, Supraclavicular, or Inguinal Adenopathy Neurological: Cranial nerves II-XII grossly intact, Neuro grossly intact Psych/Mental Status: Normal Affect, Appropriate Vital Signs Temp Pulse Resp BP Pulse Ox 98.9 F 78 18 119/37 L 98 08/31/18 18:46 08/31/18 18:46 08/31/18 18:46 08/31/18 18:46 08/31/18 15:52 Oxygen Delivery Method Room Air Weight: 60.6 kg Body Mass Index (BMI) 22.9 Assessment/Plan All Active Problems Acute alcohol withdrawal (Acute) Acute opioid withdrawal (Acute) 37 year old F with PMHx of polysubstance use disorder, nicotine dependence, who was recently discharged on 05/03/18 after medical stabilization for acute opioid and alcohol withdrawal comes in with acute opiate withdrawal symptoms for medical stabilization the [facility] protocol. 1. Acute opioid withdrawal any known IV heroin user, stable vitals. Admitting withdrawal score is 11. Plan: Admit to [facility], monitor per [facility] protocol. 2. Multiple acute and chronic skin ulcers, no surrounding cellulitis, will continue on chlorhexidine topical washes 3. Nicotine dependence, on replacement, advised to quit 4. Polysubstance use disorder, advised to quit 5. DVT PPx-early ambulation. Code Visit Inpatient E&M: 14784 Init Hosp L2
--- NOTE | 2018-08-31 19:31 | HP.PCM_ITS ---
Problem List (1) Acute opioid withdrawal Status: Acute (2) Heroin abuse Status: Chronic History of Present Illness Date of Admission: 08/31/18 Chief Complaint: Acute opioid withdrawal - 1 day The patient is a 37 year old F with PMHx of polysubstance use disorder, nicotine dependence, who was recently discharged on 05/03/18 after medical stabilization for acute opioid and alcohol withdrawal. Patient admits to using about 1 g to 1- 1/2 g of IV heroin every day. Last used IV heroin 08/30/18 about half a gram. Comes in with complaints of nausea vomiting muscle cramps, hot and cold flashes, muscle aches. Denies use of alcohol.. She also complains of generalized ulcers all over her body. She admits that she used to pick her skin train herself to stop. She is not sure if she is picking her skin in the sleep. She plans on following up with an inpatient treatment facility on discharge. Also on admission show temperature of 90 8F, heart rate 89, blood pressure 115/79, respiratory rate was 18, SPO2 is 98% on room air. Admitting CBC D, INR, CMP was unremarkable Except for elevated ALT and ALP. Admitting alcohol level was 5.0. 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 Paternal History Items: No pertinent history Review of Systems Constitutional: Reports: Night Sweats, Malaise, Fatigue. Denies: Anorexia, Chills, Fever, Weakness, Weight Change Eyes: Denies: Blurred vision, Cataracts, Conjunctivae Inflammation, Pain, Redness, Vision Change HEENT: Denies: Difficulty Hearing, Difficulty Swallowing, Head Aches, Hearing Changes, Sinus Congestion, Sinus Drainage Cardiovascular: Denies: Chest Pain, Claudication, Chest Pressure, Chest Tightness, Orthopnea, Palpitations, Paroxysmal Noc. Dyspnea Respiratory: Denies: Cough, Hemoptysis, Shortness of breath at rest, Shortness of breath upon exertion, Sputum production Gastrointestinal: Reports: Nausea, Vomiting. Denies: Abdominal Pain, Constipation, Hematemesis, Hematochezia Genitourinary: Denies: Dysuria, Frequency, Incontinence Gynecological: Denies: Breast symptoms Musculoskeletal: Reports: Muscle pain. Denies: Joint Pain, Joint stiffness, Joint swelling, Joint Tenderness Skin: Denies: Rash, Wounds Neurological: Denies: Numbness, Tingling, Focal weakness Psychiatric: Denies: Anxiety, Depression, Homicidal Ideations, Suicidal Ideations Hematologic/ Lymphatic: Denies: Easy Bruising, Easy Bleeding VTE Information - Inpt Only VTE Present on Admission: No VTE Pharm Prophylaxis ordered?: Yes - Physical Exam General: Alert, Oriented x3, Cooperative, No apparent distress HEENT: Atraumatic, PERRLA, EOMI, Normocephalic Oral: Moist Mucosa Neck: Supple Lungs: Clear to auscultation, Normal air movement Cardiovascular: Regular rate, Regular Rhythm, Normal S1, Normal S2, No murmurs Abdomen: Bowel Sounds Present, Soft, Non Tender, Non-Distended, No Hepato- splenomegaly Extremities: No edema Skin: - - Multiple areas of skin breakdown in multiple stages of healing. No cellulitis seen. Musculoskeletal: No Tenderness to Palpation of Joints or Extremities Lymphatic: No Cervical, Supraclavicular, or Inguinal Adenopathy Neurological: Cranial nerves II-XII grossly intact, Neuro grossly intact Psych/Mental Status: Normal Affect, Appropriate Vital Signs Temp Pulse Resp BP Pulse Ox 98.9 F 78 18 119/37 L 98 08/31/18 18:46 08/31/18 18:46 08/31/18 18:46 08/31/18 18:46 08/31/18 15:52 Oxygen Delivery Method Room Air Weight: 60.6 kg Body Mass Index (BMI) 22.9 Assessment/Plan All Active Problems Acute alcohol withdrawal (Acute) Acute opioid withdrawal (Acute) 37 year old F with PMHx of polysubstance use disorder, nicotine dependence, who was recently discharged on 05/03/18 after medical stabilization for acute opioid and alcohol withdrawal comes in with acute opiate withdrawal symptoms for medical stabilization the [facility] protocol. 1. Acute opioid withdrawal any known IV heroin user, stable vitals. Admitting withdrawal score is 11. Plan: Admit to [facility], monitor per [facility] protocol. 2. Multiple acute and chronic skin ulcers, no surrounding cellulitis, will continue on chlorhexidine topical washes 3. Nicotine dependence, on replacement, advised to quit 4. Polysubstance use disorder, advised to quit 5. DVT PPx-early ambulation. Code Visit Inpatient E&M: 07119 Init Hosp L2
[2018-08-31 19:50] VITALS: RESP 18
[2018-08-31] MEDS: Methocarbamol 750 MG Tablet PO (19:58)
[2018-08-31 20:23] LABS: Absolute Lymphocyte Count 1.13 X10^3/ul (0.83-4.51); Absolute Neutrophil Count 2.6 X10^3/uL (2.0-7.7); Basophil% 2.3 % (0-1); Eosinophil# 0.05 X10^3/uL; Eosinophils% 1.1 % (0-5); Hematocrit 42.2 % (37-47); Hemoglobin 14.2 g/dl (12.0-15.0); Lymphocyte # 1.13 X10^3/ul (4.0); Lymphocyte % 25.6 % (19-41); Mean Corp Hgb Conc 33.6 g/gl (32-36); Mean Corpuscular Hgb 28.2 pg (27.0-32.0); Mean Corpuscular Volume 83.9 fL (81-99); Mean Platelet Vol. 9.9 fl (6.2-12.0); Monocyte# 0.58 X10^3/uL; Monocyte% 13.2 % (0-10); Neutrophil # 2.55 X10^3/uL (2.7-7.7); Neutrophil % 57.8 % (47-70); POSITIVE COUNT NO; POSITIVE DIFFERENTIAL NO; POSITIVE MORPHOLOGY NO; Platelet Count 273 K/mm3 (150-450); RBC Distribution Width CV 13.5 % (11.6-14.6); RBC Distribution Width SD 41.6 fl (35.1-43.9); Red Blood Count 5.03 M/mm3 (4.2-5.4); White Blood Count 4.4 K/mm3 (4.4-11.0)
[2018-08-31 20:43] LABS: ALB/GLOB Ratio 0.7 RATIO (0.9-2.4); AST(SGOT) 26 U/L (15-37); Alanine Aminotransfer ALT/SGPT 29 U/L (13-56); Albumin, Serum 3.3 g/dL (3.2-5.0); Alkaline Phosphatase 137 U/L (45-117); Anion Gap 6 (5-15); BUN 11 mg/dL (7-18); BUN/Creat Ratio 14.5 RATIO (10-20); Calcium,Total 8.7 mg/dL (8.5-10.1); Chloride 103 mmol/L (98-107); Creatinine, Serum 0.76 mg/dL (0.55-1.02); EST Glomerular Filtration Rate 91 mL/min (>60); Est Glom Filt Rate - Afr Amer 110 mL/min (>60); Estimated Creatinine Clearance 87.52 ml/min; Globulin 4.6 g/dL (2.2-4.2); Glucose 98 mg/dL (74-106); Potassium 3.6 mmol/L (3.5-5.1); Protein, Total 7.9 g/dL (6.4-8.2); Sodium Level 136 mmol/L (136-145)
[2018-08-31] MEDS: cloNIDine HCl 0.1 MG Tablet PO (22:33)
[2018-08-31] MEDS: traZODone 50 MG Tablet PO (22:33)
[2018-08-31 22:35] VITALS: BP 110/67; PULSE 71; RESP 18; TEMP 37.1; O2SAT 99
[2018-09-01] VITALS (9 sets, daily range): BP systolic 80–102; BP diastolic 36–59; PULSE 48–65; RESP 16–18; TEMP 36.5–36.9; O2SAT 96–98
[2018-09-01] MEDS: Buprenorphine HCl 2 MG TAB.SUBL SL ×3 (03:30→20:46)
[2018-09-01] MEDS: Methocarbamol 750 MG Tablet PO ×2 (03:39→20:47)
[2018-09-01] MEDS: Ondansetron ODT 4 MG Tablet PO ×2 (03:39→20:48)
[2018-09-01] MEDS: Folic Acid 1 MG Tablet PO (08:41)
[2018-09-01] MEDS: Dicyclomine 10 MG Capsule 20 MG PO (08:41)
[2018-09-01] MEDS: Thiamine Hydrochloride 100 MG Tablet PO (08:41)
[2018-09-01] MEDS: hydrOXYzine PAM 25 MG Capsule 50 MG PO ×2 (08:41→20:48)
[2018-09-01] MEDS: Ibuprofen 600 MG Tablet PO ×2 (08:41→23:00)
--- NOTE | 2018-09-01 09:46 | PCM.PN.HOSP ---
Subjective: Patient seen and examined. She has been managed for acute opiate withdrawal. She complains of increased sweating and abdominal cramps as well as restless leg syndrome. Review of systems otherwise negative. Labs and vitals reviewed. Vitals/I&O's: Vital Signs Temp Pulse Resp BP Pulse Ox 98.1 F 50 L 16 88/51 L 97 09/01/18 08:47 09/01/18 08:47 09/01/18 08:47 09/01/18 08:47 09/01/18 08:47 Oxygen Delivery Method Room Air Weight: 133 lb 9.602 oz Body Mass Index (BMI) 22.9 Intake and Output for Last 24 Hours 08/30/18 08/31/18 09/01/18 23:59 23:59 23:59 Intake Total 840 / 840 200 / 200 Balance 840 / 840 200 / 200 General: Alert, Oriented x3, Cooperative, No apparent distress HEENT: Atraumatic, PERRLA, EOMI, Normocephalic Oral: Moist Mucosa Neck: Supple, No JVD, Negative Carotid Bruits Lungs: Clear to auscultation, Normal air movement, No rhonchi, No wheeze, No rales Cardiovascular: Regular rate, Regular Rhythm, Normal S1, Normal S2, No murmurs Abdomen: Bowel Sounds Present, Soft, Non Tender, Non-Distended, No Hepato-splenomegaly Extremities: No clubbing, No cyanosis, No edema, Capillary Refill Less than 3 Seconds Skin: - - track maguire over UEs. Superficial skin ulcerations on her back and face Musculoskeletal: No Tenderness to Palpation of Joints or Extremities Lymphatic: No Cervical, Supraclavicular, or Inguinal Adenopathy Neurological: Cranial nerves II-XII grossly intact, Neuro grossly intact, Motor Exam 5/5 strength throughout Psych/Mental Status: Normal Affect, Appropriate, Alert and oriented to time, place, person, mood and affect Laboratory Results 08/31/18 20:14: WBC 4.4, RBC 5.03, Hgb 14.2, Hct 42.2, MCV 83.9, MCH 28.2, MCHC 33.6, RDW 13.5, RDW Differential 41.6, Plt Count 273, MPV 9.9, Immature Gran % (Auto) 0.000, Neut % (Auto) 57.8, Lymph % (Auto) 25.6, Kings % (Auto) 13.2 H, Eos % (Auto) 1.1, Baso % (Auto) 2.3 H, Absolute Neuts (auto) 2.6, Absolute Lymphs (auto) 1.13, Total Counted Not Reportable 08/31/18 20:14: Sodium 136, Potassium 3.6, Chloride 103, Carbon Dioxide 27.0, Anion Gap 6, BUN 11, Creatinine 0.76, Estim Creat Clear Calc 87.52, Est GFR (MDRD) Af Amer 110, Est GFR (MDRD) Non-Af 91, BUN/Creatinine Ratio 14.5, Glucose 98, Calcium 8.7, Total Bilirubin 0.30, AST 26, ALT 29, Alkaline Phosphatase 137 H, Total Protein 7.9, Albumin 3.3, Globulin 4.6 H, Albumin/Globulin Ratio 0.7 L Current Medications Acetaminophen (Tylenol) 500 mg PO Q4H PRN PRN PRN Reason: Temp > 100.4 F Al Hydroxide/Mg Hydroxide (Mylanta Ii) 30 ml PO Q6H PRN PRN PRN Reason: dyspesia Bisacodyl (Dulcolax) 10 mg RECTAL DAILY PRN PRN Reason: Constipation Buprenorphine HCl (Buprenorphine Hcl) 4 mg SL Q8H MAYANK; Taper Stop: 09/03/18 23:59 Last Admin: 09/01/18 03:30 Dose: 4 mg Chlorhexidine Gluconate () 1 each TOPICAL DAILY MAYANK Clonidine (Catapres) 0.1 mg PO Q2H PRN PRN PRN Reason: Hot/Cold Sweats or Anxiety Last Admin: 08/31/18 22:33 Dose: 0.1 mg Dicyclomine HCl (Bentyl) 20 mg PO Q6H PRN PRN PRN Reason: Abdomnial Discomfort Last Admin: 09/01/18 08:41 Dose: 20 mg Folic Acid (Folic Acid) 1 mg PO DAILYCM MAYANK Last Admin: 09/01/18 08:41 Dose: 1 mg Hydroxyzine Pamoate (Vistaril Pamoate Capsule) 50 mg PO Q6H PRN PRN PRN Reason: Mild Anxiety Last Admin: 09/01/18 08:41 Dose: 50 mg Ibuprofen (Motrin) 600 mg PO Q8H PRN PRN PRN Reason: Mild-Moderate Pain (1-5/10) Last Admin: 09/01/18 08:41 Dose: 600 mg Loperamide HCl (Imodium) 2 - 4 mg PO UD PRN PRN Reason: LOOSE STOOLS Methocarbamol (Methocarbamol) 750 mg PO Q6H PRN PRN PRN Reason: Muscle Aches Last Admin: 09/01/18 03:39 Dose: 750 mg Nicotine (Nicoderm Cq (Pbkc)) 14 mg TRANSDERM. DAILY [facility] Last Admin: 09/01/18 08:45 Dose: 14 mg Ondansetron HCl (Zofran Odt) 4 mg PO Q6H PRN PRN PRN Reason: NAUSEA Last Admin: 09/01/18 03:39 Dose: 4 mg Pramipexole Dihydrochloride (Mirapex) 0.25 mg PO Q12H PRN PRN PRN Reason: Restless Legs Last Admin: 08/31/18 18:57 Dose: 0.25 mg Senna (Senokot) 1 tablet PO QHS PRN PRN Reason: Constipation [facility]) [facility] Last Admin: 09/01/18 08:41 Dose: 100 mg Trazodone HCl (Desyrel) 50 mg PO QHS [facility] Last Admin: 08/31/18 22:33 Dose: 50 mg Medical Necessity - Tobacco Use Smoking Status: Current every day smoker Tobacco Use: Cigarettes Assessment/Plan All Active Problems Acute alcohol withdrawal (Acute) Acute opioid withdrawal (Acute) 1. Acute opioid withdrawal complains of abdominal cramps, increased sweating and restless legs, which are all effects of opioid withdrawal on opioid withdrawal protocol with BUprenorphine per [facility] protocol. monitor CINA score 2. Nicotine dependence: counselled to quit. On nicotine patch 3. Chronic superficial skin ulcerations: on chlorhexidine topical washes DVT prophylaxis: low risk, encourage ambulation. Code Visit Inpatient E&M: 87133 Subs Hosp L2
--- NOTE | 2018-09-01 09:54 | PN_ITS ---
Subjective: Patient seen and examined. She has been managed for acute opiate withdrawal. She complains of increased sweating and abdominal cramps as well as restless leg syndrome. Review of systems otherwise negative. Labs and vitals reviewed. Vitals/I&O's: Vital Signs Temp Pulse Resp BP Pulse Ox 98.1 F 50 L 16 88/51 L 97 09/01/18 08:47 09/01/18 08:47 09/01/18 08:47 09/01/18 08:47 09/01/18 08:47 Oxygen Delivery Method Room Air Weight: 133 lb 9.602 oz Body Mass Index (BMI) 22.9 Intake and Output for Last 24 Hours 08/30/18 08/31/18 09/01/18 23:59 23:59 23:59 Intake Total 840 / 840 200 / 200 Balance 840 / 840 200 / 200 General: Alert, Oriented x3, Cooperative, No apparent distress HEENT: Atraumatic, PERRLA, EOMI, Normocephalic Oral: Moist Mucosa Neck: Supple, No JVD, Negative Carotid Bruits Lungs: Clear to auscultation, Normal air movement, No rhonchi, No wheeze, No rales Cardiovascular: Regular rate, Regular Rhythm, Normal S1, Normal S2, No murmurs Abdomen: Bowel Sounds Present, Soft, Non Tender, Non-Distended, No Hepato- splenomegaly Extremities: No clubbing, No cyanosis, No edema, Capillary Refill Less than 3 Seconds Skin: - - track maguire over UEs. Superficial skin ulcerations on her back and face Musculoskeletal: No Tenderness to Palpation of Joints or Extremities Lymphatic: No Cervical, Supraclavicular, or Inguinal Adenopathy Neurological: Cranial nerves II-XII grossly intact, Neuro grossly intact, Motor Exam 5/5 strength throughout Psych/Mental Status: Normal Affect, Appropriate, Alert and oriented to time, place, person, mood and affect Laboratory Results 08/31/18 20:14: WBC 4.4, RBC 5.03, Hgb 14.2, Hct 42.2, MCV 83.9, MCH 28.2, MCHC 33.6, RDW 13.5, RDW Differential 41.6, Plt Count 273, MPV 9.9, Immature Gran % (Auto) 0.000, Neut % (Auto) 57.8, Lymph % (Auto) 25.6, Hale % (Auto) 13.2 H, Eos % (Auto) 1.1, Baso % (Auto) 2.3 H, Absolute Neuts (auto) 2.6, Absolute Lymphs (auto) 1.13, Total Counted Not Reportable 08/31/18 20:14: Sodium 136, Potassium 3.6, Chloride 103, Carbon Dioxide 27.0, Anion Gap 6, BUN 11, Creatinine 0.76, Estim Creat Clear Calc 87.52, Est GFR (MDRD) Af Amer 110, Est GFR (MDRD) Non-Af 91, BUN/Creatinine Ratio 14.5, Glucose 98, Calcium 8.7, Total Bilirubin 0.30, AST 26, ALT 29, Alkaline Phosphatase 137 H, Total Protein 7.9, Albumin 3.3, Globulin 4.6 H, Albumin/Globulin Ratio 0.7 L Current Medications Acetaminophen (Tylenol) 500 mg PO Q4H PRN PRN PRN Reason: Temp > 100.4 F Al Hydroxide/Mg Hydroxide (Mylanta Ii) 30 ml PO Q6H PRN PRN PRN Reason: dyspesia Bisacodyl (Dulcolax) 10 mg RECTAL DAILY PRN PRN Reason: Constipation Buprenorphine HCl (Buprenorphine Hcl) 4 mg SL Q8H MAYANK; Taper Stop: 09/03/18 23:59 Last Admin: 09/01/18 03:30 Dose: 4 mg Chlorhexidine Gluconate () 1 each TOPICAL DAILY MAYANK Clonidine (Catapres) 0.1 mg PO Q2H PRN PRN PRN Reason: Hot/Cold Sweats or Anxiety Last Admin: 08/31/18 22:33 Dose: 0.1 mg Dicyclomine HCl (Bentyl) 20 mg PO Q6H PRN PRN PRN Reason: Abdomnial Discomfort Last Admin: 09/01/18 08:41 Dose: 20 mg Folic Acid (Folic Acid) 1 mg PO DAILYCM MAYANK Last Admin: 09/01/18 08:41 Dose: 1 mg Hydroxyzine Pamoate (Vistaril Pamoate Capsule) 50 mg PO Q6H PRN PRN PRN Reason: Mild Anxiety Last Admin: 09/01/18 08:41 Dose: 50 mg Ibuprofen (Motrin) 600 mg PO Q8H PRN PRN PRN Reason: Mild-Moderate Pain (1-5/10) Last Admin: 09/01/18 08:41 Dose: 600 mg Loperamide HCl (Imodium) 2 - 4 mg PO UD PRN PRN Reason: LOOSE STOOLS Methocarbamol (Methocarbamol) 750 mg PO Q6H PRN PRN PRN Reason: Muscle Aches Last Admin: 09/01/18 03:39 Dose: 750 mg Nicotine (Nicoderm Cq (Pbkc)) 14 mg TRANSDERM. DAILY [facility] Last Admin: 09/01/18 08:45 Dose: 14 mg Ondansetron HCl (Zofran Odt) 4 mg PO Q6H PRN PRN PRN Reason: NAUSEA Last Admin: 09/01/18 03:39 Dose: 4 mg Pramipexole Dihydrochloride (Mirapex) 0.25 mg PO Q12H PRN PRN PRN Reason: Restless Legs Last Admin: 08/31/18 18:57 Dose: 0.25 mg Senna (Senokot) 1 tablet PO QHS PRN PRN Reason: Constipation [facility]) [facility] Last Admin: 09/01/18 08:41 Dose: 100 mg Trazodone HCl (Desyrel) 50 mg PO QHS [facility] Last Admin: 08/31/18 22:33 Dose: 50 mg Medical Necessity - Tobacco Use Smoking Status: Current every day smoker Tobacco Use: Cigarettes Assessment/Plan All Active Problems Acute alcohol withdrawal (Acute) Acute opioid withdrawal (Acute) 1. Acute opioid withdrawal * complains of abdominal cramps, increased sweating and restless legs, which are all effects of opioid withdrawal * on opioid withdrawal protocol with BUprenorphine per [facility] protocol. * monitor CINA score * 2. Nicotine dependence: counselled to quit. On nicotine patch 3. Chronic superficial skin ulcerations: on chlorhexidine topical washes DVT prophylaxis: low risk, encourage ambulation. Code Visit Inpatient E&M: 36370 Subs Hosp L2
[2018-09-01 14:59] LABS: Amphetamine Urine VISTA POSITIVE (<1000 ng/mL); Barbiturate Urine VISTA NEGATIVE (< 200 ng/mL); Benzodiazepine Urine VISTA NEGATIVE (< 200 ng/mL); Cocaine Urine VISTA POSITIVE (< 300 ng/mL); Ecstacy Urine VISTA NEGATIVE (< 500 ng/mL); Methadone Urine VISTA NEGATIVE (< 300 ng/mL); PCP Urine VISTA NEGATIVE (< 25 ng/mL); THC Urine VISTA POSITIVE (< 50 ng/mL); Vista UDS pH Range 5
--- NOTE | 2018-09-01 15:32 | CHAPLAIN ---
Type of Pastoral Visit _x__ Initial Visit ___ Follow-up Visit ___ On-call Visit ___ General Patient Visit ___ Spiritual Assessment ___ Family Conference ___ Bereavement ___ Rapid Response ___ Code Blue ___ Other (describe below) Pastoral Care Referral From _x__ Patient ___ Family ___ Nurse ___ Physician ___ Chemical Etch Operator ___ Plumber Assistant ___ Other (describe below) Sacrament/Intervention _x__ Active listening ___ Anointing ___ Alevism ___ Bereavement ___ Communion ___ Iliana exploration ___ ___ Life review ___ Prayer ___ Reconciliation ___ Sacrament of Sick _x__ Supportive presence ___ Wedding ___ Other (describe below) Pastoral Comments introduction of services; welcoming; patient requests a visit later as she is feeling tired;
[2018-09-01] MEDS: Pramipexole Di-HCl 0.25 MG Tablet PO (20:49)
[2018-09-01] MEDS: traZODone 50 MG Tablet PO (22:58)
[2018-09-02 00:46] VITALS: RESP 18
[2018-09-02] MEDS: Buprenorphine HCl 2 MG TAB.SUBL SL ×3 (04:13→23:40)
[2018-09-02] MEDS: Methocarbamol 750 MG Tablet PO ×2 (04:15→15:16)
[2018-09-02 06:00] VITALS: RESP 16
[2018-09-02] MEDS: Thiamine Hydrochloride 100 MG Tablet PO (07:55)
[2018-09-02] MEDS: Ibuprofen 600 MG Tablet PO (07:55)
[2018-09-02] MEDS: Dicyclomine 10 MG Capsule 20 MG PO ×2 (07:55→20:38)
[2018-09-02] MEDS: hydrOXYzine PAM 25 MG Capsule 50 MG PO ×3 (07:55→23:42)
[2018-09-02] MEDS: Ondansetron ODT 4 MG Tablet PO ×2 (07:55→15:16)
[2018-09-02] MEDS: Folic Acid 1 MG Tablet PO (07:55)
[2018-09-02 07:59] VITALS: BP 83/41; PULSE 49; RESP 16; TEMP 36.6; O2SAT 97
[2018-09-02 11:59] VITALS: BP 91/46; PULSE 97; RESP 16; TEMP 36.6; O2SAT 95
--- NOTE | 2018-09-02 12:31 | PCA ---
[facility] Called floor regarding patient, saying they made her an apt for her for 08/04/18 if have any questions call david [phone] [phone]
[2018-09-02] MEDS: CHLORHEXIDINE GLUC 2% CLOTH 1 EACH TOWELETTE TOPICAL (15:17)
[2018-09-02 15:20] VITALS: BP 104/62; PULSE 58; RESP 16; TEMP 36.6; O2SAT 100
--- NOTE | 2018-09-02 17:17 | PCM.PROGNOTE ---
Subjective: Patient was seen and examined today, she is resting quietly in bed, she voices no complaints this examiner, she does not complain of any tremor, diaphoresis, anxiety, or nausea. - Physical Exam General: Alert, Oriented x3, Cooperative, No apparent distress, Well developed HEENT: Atraumatic, PERRLA, EOMI, Normocephalic Oral: Moist Mucosa Neck: Supple, No JVD, No Nuchal Rigidity, Trachea Midline, Thyroid Normal Size and Texture Lungs: Clear to auscultation, Normal air movement, No rhonchi, No wheeze, No rales Cardiovascular: Regular rate, Regular Rhythm, Normal S1, Normal S2, No murmurs, No Ectopic Activity Abdomen: Bowel Sounds Present, Soft, Non Tender, Non-Distended, No hernias noted Extremities: No clubbing, No cyanosis, No edema, Capillary Refill Less than 3 Seconds Skin: No rashes, No breakdown Musculoskeletal: No Tenderness to Palpation of Joints or Extremities Neurological: Cranial nerves II-XII grossly intact, Neuro grossly intact, Sensory exam intact to light touch and pain, Coordination normal Psych/Mental Status: Normal Affect, Appropriate, Alert and oriented to time, place, person, mood and affect Vital Signs Temp Pulse Resp BP Pulse Ox 97.9 F 58 L 16 104/62 100 09/02/18 15:20 09/02/18 15:20 09/02/18 15:20 09/02/18 15:20 09/02/18 15:20 Oxygen Delivery Method Room Air Weight: 60.6 kg Body Mass Index (BMI) 22.9 Intake and Output for Last 24 Hours 08/31/18 09/01/18 09/02/18 23:59 23:59 23:59 Intake Total 840 / 840 500 / 500 1350 / 1350 Output Total 150 / 150 Balance 840 / 840 350 / 350 1350 / 1350 Medical Necessity - Tobacco Use Smoking Status: Current every day smoker Tobacco Use: Cigarettes Assessment/Plan All Active Problems Acute alcohol withdrawal (Resolved) Acute opioid withdrawal (Acute) Alcohol abuse (Resolved) #1 acute heroin withdrawal-continue present medications #2 polysubstance abuse-cocaine and cannabinoids Code Visit Inpatient E&M: 68864 Subs Hosp L2
[2018-09-02] MEDS: Pramipexole Di-HCl 0.25 MG Tablet PO (19:15)
[2018-09-02 20:31] VITALS: BP 91/59; PULSE 54; RESP 16; TEMP 36.7
[2018-09-02] MEDS: traZODone 50 MG Tablet PO (20:38)
[2018-09-03 07:32] VITALS: BP 87/49; PULSE 47; RESP 16; TEMP 36.6
[2018-09-03] MEDS: Thiamine Hydrochloride 100 MG Tablet PO (07:57)
[2018-09-03] MEDS: Folic Acid 1 MG Tablet PO (07:57)
[2018-09-03] MEDS: Dicyclomine 10 MG Capsule 20 MG PO (07:57)
[2018-09-03 08:00] VITALS: BP 106/69; PULSE 66
[2018-09-03] MEDS: hydrOXYzine PAM 25 MG Capsule 50 MG PO (08:00)
[2018-09-03] MEDS: Pramipexole Di-HCl 0.25 MG Tablet PO (08:00)
--- NOTE | 2018-09-03 10:09 | DCINST_ITS ---
You will use the following diet at home:: No restrictions Your food should be the consistency of: Regular Your liquids should be the consistency of: Regular/Thin Discharge Activity: Return to Normal Activity Weight Bearing Status: Full weight bearing Allergies/Adverse Reactions: Allergies No Known Allergies Allergy (Verified 08/31/18 15:55) Primary Care Physician: Care Physician,No Primary [Primary Care Provider] - Test Results: Test results from this visit will be discussed in further detail at your follow- up appointment, if applicable. Please Follow Up With: [facility]
[2018-09-03] MEDS: Buprenorphine HCl 2 MG TAB.SUBL SL (11:44)
[2018-09-03] MEDS: Ondansetron ODT 4 MG Tablet PO (11:45)
[2018-09-03 11:48] VITALS: BP 102/64; PULSE 62; RESP 16; TEMP 36.5
[2018-09-03 15:39] VITALS: BP 105/57; PULSE 56; RESP 16; TEMP 36.7; O2SAT 97
--- NOTE | 2018-09-05 15:45 | DS.PCM_ITS ---
Discharge Date and Diagnosis Date of Admission: 08/31/18 Date of Discharge: 09/03/18 - Primary Discharge Diagnosis #1 acute heroin withdrawal #2 polysubstance abuse-cocaine and cannabinoids and heroin - Secondary Discharge Diagnosis Chronic Problems Benzodiazepine abuse (Chronic) Heroin abuse (Chronic) Hospital Course and Treatment Operations: None Procedures: None Summary of Care Provided: The patient is a 37 year old F was seen in the emergency room at [facility] after being evaluated by Valeriano Chino and accepted for the medical stabilization program for detoxification from heroin. Evaluation in the emergency room consisted of the physical exam without lab work, patient was admitted to the medical stabilization program on MedSurg 3, orders were entered using the templates for the medical stabilization program. Patient had no untoward events during her hospitalization, she was set up for outpatient continuing rehab services, on 09/03/2018, patient was seen and examined: On examination she appeared in good health and spirits. Vital signs as documented. Skin warm and dry and without overt rashes. Neck without JVD. Lungs clear. Heart exam notable for regular rhythm, normal sounds and absence of murmurs, rubs or gallops. Abdomen unremarkable and without evidence of organomegaly, masses, or abdominal aortic enlargement. Extremities nonedematous. Neuro: Cranial nerves II through XII are grossly intact, no focal motor deficits were noted, sensation to light touch and pinprick is intact. Psych: Patient is alert and oriented x3, she does not appear anxious or depressed On 09/03/2018, patient was seen and examined felt to be in stable condition for discharge home - Physical Exam Vital Signs Temp Pulse Resp BP Pulse Ox 98.1 F 56 L 16 105/57 L 97 09/03/18 15:39 09/03/18 15:39 09/03/18 15:39 09/03/18 15:39 09/03/18 15:39 Oxygen Delivery Method Room Air Weight: 60.6 kg Body Mass Index (BMI) 22.9 Intake and Output for Last 24 Hours 09/03/18 09/04/18 09/05/18 23:59 23:59 23:59 Intake Total 1250 / 1250 Balance 1250 / 1250 Discharge Activity: Return to Normal Activity Weight Bearing Status: Full weight bearing Primary Care Physician: Care Physician,No Primary [Primary Care Provider] - Please Follow Up With: [facility] Disposition: Home Minutes spent on discharge:: 32 Patient Condition:: Stable Medical Necessity - Tobacco Use Smoking Status: Current every day smoker Tobacco Use: Cigarettes Meaningful Use Info Meaningful Use Diagnoses (Choose all that apply): None applicable Code Visit Inpatient E&M: 76437 Disch Hosp
== END 2018-09-03 16:24 | disposition home or self-care (01) | DRG 773 ==
LOC: ED 17:15 → MS3 17:49
PROVIDERS: Admitting Provider Internal Medicine; Emergency Provider Emergency Medicine; Referring Provider Internal Medicine; Visit Provider Internal Medicine
DX: F11.23 Opioid dependence with withdrawal (principal); F17.210 Nicotine dependence, cigarettes, uncomplicated; L98.499 Non-pressure chronic ulcer of skin of other sites with unspecified severity; F14.10 Cocaine abuse, uncomplicated; F12.10 Cannabis abuse, uncomplicated; L30.9 Dermatitis, unspecified
CPT/HCPCS: 36415; 80053; 80307; 85025; 99218; 99281; 99406; G0378